=== PATIENT | male | born 1955 | race Caucasian/White ===

== ENCOUNTER 2019-05-25 09:45 | Emergency (ER) | payer MEDICARE, BC ==
[2019-05-25 10:06] VITALS: BP 139/79; PULSE 66
--- NOTE | 2019-05-25 11:03 | EDM.PDOC ---
ED HPI GENERAL MEDICAL PROBLEM - General Chief Complaint: General Stated Complaint: DIZZY,LEFT SIDE WEAKNESS Time Seen by Provider: 05/25/19 10:10 Source of Information: Reports: Patient, Family (), Old Records, RN, RN Notes Reviewed History Limitations: Reports: No Limitations - History of Present Illness INITIAL COMMENTS - FREE TEXT/NARRATIVE: Pt presents to ER from home with c/o a near-syncopal episode. 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 When he sneezed he felt a shock with tingling from the base of his neck down the left arm to the finger tips, and became very lightheaded. He states he did not pass out or have a LOC, but felt as if he might. The episode lasted a few seconds, but he did remain slightly dizzy for about 30 minutes before it completely resolved. He denies chest pain, shortness of breath, palpitations, vertigo, nausea, vomiting, cough, congestion, or headache. Onset: Today, Sudden Duration: Improving Location: Reports: Generalized Severity: Moderate Improves with: Reports: None Worsens with: Reports: None Associated Symptoms: Reports: No Other Symptoms - Related Data Allergies Allergy/AdvReac Type Severity Reaction Status Date / Time Tetanus Vaccines and Toxoid Allergy Swelling Verified 05/25/19 10:07 [Tetanus Vaccines & Toxoid] Home Meds: Home Meds Aspirin [Halfprin] 81 mg PO BRK 01/01/15 [History] Omeprazole 20 mg PO DAILY 01/01/15 [History] Rosuvastatin Calcium [Crestor] 5 mg PO DAILY 01/01/15 [History] Ferrous Sulfate 325 mg PO .EVERYOTHERDAY 10/18/18 [History] Multivitamin [Multivitamins] 1 each PO DAILY 10/18/18 [History] traMADol [Ultram] 50 mg PO Q6HR PRN 10/18/18 [History] Calcium Carbonate/Vitamin D3 [Calcium 500 + Vit D 400] 1 tab PO DAILY 05/25/19 [ History] Lactobacillus Rhamnosus GG [Culturelle] 1 tab PO DAILY 05/25/19 [History] Magnesium 250 mg PO DAILY 05/25/19 [History] lisinopriL [Lisinopril] 10 mg PO DAILY 05/25/19 [History] Past Medical History Other HEENT History: 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 Cardiovascular History: Reports: Hypertension Gastrointestinal History: Reports: GERD Genitourinary History: Reports: Renal Calculus Other Genitourinary History: kidney stone Dx October 12, 2018 Endocrine/Metabolic History: Reports: Hypomagnesemia - Infectious Disease History Infectious Disease History: Reports: Shingles Social & Family History - Family History Family Medical History: Noncontributory - Tobacco Use Smoking Status *Q: Never Smoker Second Hand Smoke Exposure: No - Caffeine Use Caffeine Use: Reports: Tea - Recreational Drug Use Recreational Drug Use: No - Living Situation & Occupation Living situation: Reports: , with Spouse Occupation: Employed ED ROS GENERAL - Review of Systems Review Of Systems: Comprehensive ROS is negative, except as noted in HPI. ED EXAM, GENERAL - Physical Exam Exam: See Below Exam Limited By: No Limitations General Appearance: Alert, WD/WN, No Apparent Distress, Obese Eye Exam: Bilateral Eye: EOMI, Normal Fundi, Normal Inspection, PERRL Ears: Normal External Exam, Normal Canal, Hearing Grossly Normal, Normal TMs Nose: Normal Inspection, Normal Mucosa, No Blood Throat/Mouth: Normal Inspection, Normal Lips, Normal Teeth, Normal Gums, Normal Oropharynx, Normal Voice, No Airway Compromise Head: Atraumatic, Normocephalic Neck: Normal Inspection, Supple, Non-Tender, Full Range of Motion. No: Carotid Bruit, Lymphadenopathy (L), Lymphadenopathy (R) Respiratory/Chest: No Respiratory Distress, Lungs Clear, Normal Breath Sounds, No Accessory Muscle Use, Chest Non-Tender Cardiovascular: Normal Peripheral Pulses, Regular Rate, Rhythm, No Edema, No Gallop, No JVD, No Murmur, No Rub Back Exam: Normal Inspection Extremities: Normal Inspection, Normal Range of Motion, Non-Tender, Normal Capillary Refill, No Pedal Edema Neurological: Alert, Oriented, CN II-XII Intact, Normal Cognition, Normal Gait, No Motor/Sensory Deficits Psychiatric: Normal Affect, Normal Mood Skin Exam: Warm, Dry, Intact, Normal Color, No Rash EKG INTERPRETATION EKG Date: 05/25/19 Time: 10:08 Rhythm: NSR Rate (Beats/Min): 63 [place]: Normal P-Wave: Present QRS: Normal ST-T: Normal QT: Normal Comparison: NA - No Prior EKG Course - Vital Signs Last Recorded V/S: Last Vital Signs Temp 97.7 F 05/25/19 10:04 Pulse 66 05/25/19 10:04 Resp 18 05/25/19 10:04 BP 139/79 05/25/19 10:04 Pulse Ox Orthostatic Blood Pressure [ 109/74 Standing] Orthostatic Blood Pressure [ 122/70 Sitting] Orthostatic Blood Pressure [ 125/76 Supine] Not orthostatic. - Orders/Labs/Meds Orders: Active Orders 24 hr Category Date Time Status EKG Documentation Completion [RC] URGENT Care 05/25/19 10:15 Active Orthostatic Vital Signs [RC] ASDIRECTED Care 05/25/19 10:40 Active Labs: Laboratory Tests 05/25/19 05/25/19 05/25/19 Range/Units 10:51 10:51 10:58 WBC 6.7 (5.0-10.0) 10^3/uL RBC 4.03 L (4.6-6.2) 10^6/uL Hgb 12.9 L D (14.0-18.0) g/dL Hct 37.1 L (40.0-54.0) % MCV 92.1 D (80-100) fL MCH 32.0 (27.0-34.0) pg MCHC 34.8 (33.0-35.0) g/dL Plt Count 207 (150-450) 10^3/uL Neut % (Auto) 70.0 (42.2-75.2) % Lymph % (Auto) 19.3 L (20.5-50.1) % [place] % (Auto) 8.0 (2-8) % Eos % (Auto) 2.1 (1.0-3.0) % Baso % (Auto) 0.6 (0.0-1.0) % Sodium 138 (135-145) mmol/L Potassium 4.9 (3.6-5.0) mmol/L Chloride 104 (101-111) mmol/L Carbon Dioxide 26.0 (21.0-31.0) mmol/L Anion Gap 12.9 BUN 14 (7-18) mg/dL Creatinine 1.1 D (0.6-1.3) mg/dL Est Cr Clr Drug Dosing 66.95 mL/min Estimated GFR (MDRD) > 60 BUN/Creatinine Ratio 12.72 Glucose 98 (74-105) mg/dL Calcium 9.4 (8.4-10.2) mg/dl Total Bilirubin 1.5 H (0.2-1.0) mg/dL AST 39 (10-42) IU/L ALT 33 (10-60) IU/L Alkaline Phosphatase 59 (42-121) IU/L Troponin I < 0.02 (0.00-0.02) ng/ml Total Protein 7.5 (6.7-8.2) g/dl Albumin 4.3 (3.2-5.5) g/dl Globulin 3.2 Albumin/Globulin Ratio 1.34 Urine Color Yellow (YELLOW) Urine Appearance Slightly cloudy (CLEAR) Urine pH 8.5 (5.0-9.0) Ur Specific [place] 1.020 (1.005-1.030) Urine Protein Negative (NEGATIVE) Urine Glucose (UA) Negative (NEGATIVE) Urine Ketones Negative (NEGATIVE) Urine Occult Blood Negative (NEGATIVE) Urine Nitrite Negative (NEGATIVE) Urine Bilirubin Negative (NEGATIVE) Urine Urobilinogen 0.2 (0.2-1.0) mg/dL Ur Leukocyte Esterase Negative (NEGATIVE) - Re-Assessments/Exams Free Text/Narrative Re-Assessment/Exam: 05/25/19 11:31 Pt's symptoms have completely resolved. He feels well, and wishes to go home. I find no indication that any further evaluation or studies are needed at this time. Departure - Departure Time of Disposition: 11:28 Disposition: Home, Self-Care 01 Condition: Good Clinical Impression: Vasovagal near syncope - Discharge Information *PRESCRIPTION DRUG MONITORING PROGRAM REVIEWED*: Not Applicable *COPY OF PRESCRIPTION DRUG MONITORING REPORT IN PATIENT ANA LILIA: Not Applicable Instructions: Near-Syncope Forms: ED Department Discharge Additional Instructions: Activity as tolerated. Follow up in clinic if any further concerns. Sepsis Event Note - Evaluation Sepsis Screening Result: No Definite Risk - Focused Exam Vital Signs: Vital Signs Temp Pulse Resp BP 05/25/19 10:04 97.7 F 66 18 139/79 Date Exam was Performed: 05/25/19 Time Exam was Performed: 11:30 - My Orders Last 24 Hours: My Active Orders 05/25/19 10:15 EKG Documentation Completion [RC] URGENT 05/25/19 10:40 Orthostatic Vital Signs [RC] ASDIRECTED - Assessment/Plan Last 24 Hours: My Active Orders 05/25/19 10:15 EKG Documentation Completion [RC] URGENT 05/25/19 10:40 Orthostatic Vital Signs [RC] ASDIRECTED
[2019-05-25 11:18] LABS: ANION GAP 12.9; CHLORIDE,CL 104 mmol/L (101-111); SODIUM,NA 138 mmol/L (135-145)
== END 2019-05-25 11:34 | disposition home or self-care (01) ==
LOC: DL.ED 09:45
DX: R55 Syncope and collapse (principal); I10 Essential (primary) hypertension; Z88.8 Allergy status to other drugs, medicaments and biological substances; Z79.82 Long term (current) use of aspirin; Z79.899 Other long term (current) drug therapy
CPT/HCPCS: 36415; 80053; 81003; 84484; 85025; 93005; 99283; 99285-25

== ENCOUNTER 2022-12-16 06:18 | Day surgery (SDC) | payer MEDICARE, BC ==
[2022-12-16] MEDS ORDERED: Dextrose 5%-0.45% NaCl 1,000 ML IV SCH (06:30)
[2022-12-16] MEDS ORDERED: fentaNYL 100 MCG/2 ML SDV ONE (07:15)
[2022-12-16] MEDS ORDERED: Midazolam 1 MG/ML 2 ML SDV ONE (07:15)
[2022-12-16] MEDS ORDERED: fentaNYL 100 MCG/2 ML SDV IV ONE ×2 (07:18→07:19)
[2022-12-16] MEDS ORDERED: Midazolam 1 MG/ML 2 ML SDV IV ONE ×6 (07:19→07:32)
[2022-12-16 07:40] VITALS: BP 128/72; PULSE 63
== END 2022-12-16 09:10 | disposition home or self-care (01) ==
LOC: DL.ENDO 06:18
PROVIDERS: ATTEND Internal Medicine Gastroenterology
DX: Z12.11 Encounter for screening for malignant neoplasm of colon (principal); K64.4 Residual hemorrhoidal skin tags
CPT/HCPCS: J2250; J3010; J7042

== ENCOUNTER 2023-10-31 04:18 | Emergency (ER) | payer MEDICARE, BC ==
[2023-10-31 04:59] LABS: BASOPHILS PERCENT AUTO 0.2 % (0.0-1.0); EOSINOPHILS PERCENT AUTO 0.5 % (1.0-3.0); HEMATOCRIT 37.5 % (40.0-54.0); HEMOGLOBIN 13.2 g/dL (14.0-18.0); LYMPHOCYTES PERCENT AUTO 3.5 % (20.5-50.1); MEAN CORPUSCULAR HGB CONC 35.2 g/dL (33.0-35.0); MEAN CORPUSCULAR VOLUME 93.8 fL (80-100); MONOCYTES PERCENT AUTO 8.6 % (2-8); NEUTROPHILS PERCENT AUTO 87.2 % (42.2-75.2); PLATELET COUNT,PLT 168 10^3/uL (150-450); WHITE BLOOD CELL COUNT,WBC 17.2 10^3/uL (5.0-10.0)
[2023-10-31] MEDS: Sodium Chloride 0.9% 1,000 ML IV ONE (04:59)
[2023-10-31] MEDS: Sodium Chloride 0.9% 10 ML Syringe FLUSH PRN (04:59)
[2023-10-31 05:04] LABS: APPEARANCE,URINE CLEAR (CLEAR); BILIRUBIN,URINE NEGATIVE (NEGATIVE); COLOR,URINE YELLOW (YELLOW); GLUCOSE,URINE NEGATIVE (NEGATIVE); KETONES,URINE NEGATIVE (NEGATIVE); LEUKOCYTE ESTERASE,URINE NEGATIVE (NEGATIVE); NITRITE,URINE NEGATIVE (NEGATIVE); OCCULT BLOOD,URINE NEGATIVE (NEGATIVE); PH,URINE 6.5 (5.0-9.0); PROTEIN,URINE NEGATIVE (NEGATIVE); UROBILINOGEN,URINE 0.2 mg/dL (0.2-1.0)
[2023-10-31 05:16] LABS: ANION GAP 13.5 mEq/L (7-13); CREATININE 1.43 mg/dL (0.70-1.30); EST CRCL DRUG DOSING (CG) 48.07 mL/min; POTASSIUM,K 4.5 mmol/L (3.5-5.1)
[2023-10-31] MEDS: Ketorolac 30 MG/ML SDV IVPUSH ONE (05:28)
[2023-10-31] MEDS: Iopamidol 612 MG/ML 100 ML Bottle IVPUSH ONE (05:38)
[2023-10-31] MEDS: Lactulose Soln 10 GM/15 ML 30 ML UD Cup PO ONE (09:44)
[2023-10-31] MEDS: Bisacodyl 5 MG Tab PO ONE (09:51)
[2023-10-31 09:59] VITALS: BP 123/70; PULSE 78
== END 2023-10-31 10:04 | disposition home or self-care (01) ==
LOC: DL.ED 04:18
DX: N17.9 Acute kidney failure, unspecified (principal); K59.00 Constipation, unspecified; R33.9 Retention of urine, unspecified; I10 Essential (primary) hypertension; Z79.899 Other long term (current) drug therapy; Z79.82 Long term (current) use of aspirin; Z88.7 Allergy status to serum and vaccine
CPT/HCPCS: 36415; 51702; 74177; 80048; 81003; 85025; 96361; 96374; 99284; A9270; J1885; J7030; Q9967; J3490

== ENCOUNTER 2023-11-02 08:32 | Emergency (ER) | payer MEDICARE, BC ==
[2023-11-02 08:48] VITALS: BP 146/83; PULSE 92
[2023-11-02] MEDS: Sodium Chloride 0.9% 10 ML Syringe FLUSH PRN (09:30)
[2023-11-02 09:37] LABS: BASOPHILS PERCENT AUTO 0.2 % (0.0-1.0); EOSINOPHILS PERCENT AUTO 1.7 % (1.0-3.0); HEMATOCRIT 39.6 % (40.0-54.0); HEMOGLOBIN 13.7 g/dL (14.0-18.0); LYMPHOCYTES PERCENT AUTO 3.4 % (20.5-50.1); MEAN CORPUSCULAR HEMOGLOBIN 32.8 pg (27.0-34.0); MEAN CORPUSCULAR HGB CONC 34.6 g/dL (33.0-35.0); MEAN CORPUSCULAR VOLUME 94.7 fL (80-100); NEUTROPHILS PERCENT AUTO 85.7 % (42.2-75.2); PLATELET COUNT,PLT 207 10^3/uL (150-450); RED BLOOD CELL COUNT 4.18 10^6/uL (4.6-6.2); WHITE BLOOD CELL COUNT,WBC 15.9 10^3/uL (5.0-10.0)
[2023-11-02] MEDS: Ketorolac 30 MG/ML SDV IVPUSH ONE (09:38)
[2023-11-02] MEDS: Sodium Chloride 0.9% 1,000 ML IV ONE (09:46)
[2023-11-02 09:56] LABS: INR 1.1 (0.9-1.2); PROTHROMBIN TIME 11.5 SEC (9.0-12.0); PTT,PARTIAL THROMBOPLSTIN TIME 27.2 SEC (22.0-34.0)
[2023-11-02 09:58] LABS: ALBUMIN 3.2 g/dL (3.4-5.0); ANION GAP 16.1 mEq/L (7-13); BILIRUBIN TOTAL 2.2 mg/dL (0.2-1.0); BUN/CREATININE RATIO 9.2 (No establ ref range); CALCIUM 9.6 mg/dL (8.5-10.1); CREATININE 1.42 mg/dL (0.70-1.30); EST CRCL DRUG DOSING (CG) 48.41 mL/min; MAGNESIUM 1.8 mg/dL (1.8-2.4); POTASSIUM,K 4.1 mmol/L (3.5-5.1); PROTEIN TOTAL,TP 7.3 g/dL (6.4-8.2)
[2023-11-02 09:59] LABS: LACTIC ACID 1.3 mmol/L (0.4-2.0)
[2023-11-02 10:11] LABS: A/G RATIO 0.78
== END 2023-11-02 15:00 | disposition home or self-care (01) ==
LOC: DL.ED 08:32
DX: K59.00 Constipation, unspecified (principal); I10 Essential (primary) hypertension; K21.9 Gastro-esophageal reflux disease without esophagitis; Z79.899 Other long term (current) drug therapy; Z79.82 Long term (current) use of aspirin; Z88.7 Allergy status to serum and vaccine
CPT/HCPCS: 36415; 71046; 74018; 80053; 83605; 83690; 83735; 84484; 85025; 85610; 85651; 85730; 87804; 93005; 93010; 99284; 99285; J1885; J3490; J7030; U0002

== ENCOUNTER 2023-11-09 06:34 | Emergency (ER) | payer MEDICARE, BC ==
[2023-11-09 06:46] VITALS: BP 151/108; PULSE 76
[2023-11-09] MEDS: Ondansetron 4 MG/2 ML SDV IVPUSH ONE (07:40)
[2023-11-09] MEDS: Iopamidol 612 MG/ML 100 ML Bottle IVPUSH ONE (07:40)
[2023-11-09] MEDS: Morphine 4 MG/ML Syringe IVPUSH ONE ×2 (07:42→08:54)
[2023-11-09 07:43] LABS: HEMATOCRIT 36.6 % (40.0-54.0); HEMOGLOBIN 12.6 g/dL (14.0-18.0); MEAN CORPUSCULAR HGB CONC 34.4 g/dL (33.0-35.0); MEAN CORPUSCULAR VOLUME 92.9 fL (80-100); PLATELET COUNT,PLT 376 10^3/uL (150-450); RED BLOOD CELL COUNT 3.94 10^6/uL (4.6-6.2); WHITE BLOOD CELL COUNT,WBC 11.8 10^3/uL (5.0-10.0)
[2023-11-09 07:50] LABS: BASOPHILS PERCENT AUTO 0.3 % (0.0-1.0); EOSINOPHILS PERCENT AUTO 1.9 % (1.0-3.0); LYMPHOCYTES PERCENT AUTO 9.6 % (20.5-50.1); MONOCYTES PERCENT AUTO 10.2 % (2-8)
[2023-11-09 07:59] LABS: BAND PERCENT MAN 1 %; EOSINOPHILS PERCENT MAN 1 % (1-3); LYMPHOCYTES PERCENT MAN 5 % (20-50); MONOCYTES PERCENT MAN 9 % (2-8); SEG NEUTROPHILS PERCENT MAN 84 % (42-75)
[2023-11-09 08:00] LABS: A/G RATIO 0.4; ALBUMIN 1.8 g/dL (3.4-5.0); BILIRUBIN TOTAL 0.8 mg/dL (0.2-1.0); CREATININE 1.47 mg/dL (0.70-1.30); EST CRCL DRUG DOSING (CG) 46.76 mL/min; PROTEIN TOTAL,TP 6.3 g/dL (6.4-8.2)
[2023-11-09 08:03] LABS: LACTIC ACID 1.8 mmol/L (0.4-2.0)
[2023-11-09] MEDS: Clindamycin in 0.9 % Sod Chlor 900 MG in Premix Bag 1 BAG IV ONE (08:23)
[2023-11-09] MEDS: Piperacillin/Tazobactam 4.5 GM in Sodium Chloride 0.9% 100 ML IV ONE (08:23)
[2023-11-09] MEDS: Sodium Chloride 0.9% 1,000 ML IV ONE (08:26)
[2023-11-09] MEDS: Morphine 4 MG/ML Syringe ONE (09:11)
== END 2023-11-09 09:08 ==
LOC: DL.ED 06:34
DX: K61.1 Rectal abscess (principal); L03.317 Cellulitis of buttock; L02.31 Cutaneous abscess of buttock; I10 Essential (primary) hypertension; K21.9 Gastro-esophageal reflux disease without esophagitis; Z79.899 Other long term (current) drug therapy; Z79.82 Long term (current) use of aspirin; Z88.7 Allergy status to serum and vaccine
CPT/HCPCS: 36415; 51702; 74177; 80053; 83605; 85025; 87040; 87070; 87077; 87186; 87205; 96365; 96375; 96376; 99284; 99285; J2270; J2405; J2543; J3370; J3490; J7030; J7050; Q9967